=== PATIENT | male | born 1980 | race Hispanic/Latino ===

== ENCOUNTER 2018-02-02 12:35 | Emergency (ER) | payer OTHER | END 2018-02-02 14:48 | disposition home or self-care (01) | LOC: M ED 12:35 | DX: S89.92XA Unspecified injury of left lower leg, initial encounter (principal); X50.9XXA Other and unspecified overexertion or strenuous movements or postures, initial encounter; Y92.89 Other specified places as the place of occurrence of the external cause; Y93.67 Activity, basketball; Z87.891 Personal history of nicotine dependence | CPT/HCPCS: 73564 ==